=== PATIENT | female | born 1935 | race Caucasian/White ===

== ENCOUNTER → 2016-08-24 | Outpatient (CLI) | payer OTHER ==
[~2016-08-24] MED LIST: ASPIRIN325 PO; BACTRIM DS TAB1 EACH PO; CELEBREX 200 M200 MG PO; CENTRUM SILVER1 EAC1 PO; CLARITIN10 MG PO; COLACE 100 MG100 MG PO; FOSAMAX 70 MG T70 M1 PO; MECLIZINE 25 MG25 M1 PO; NASONEX17 GM NASAL; NEXIUM40 MG PO; NORVASC 5 MG TAB5 MG PO; OS-CAL 500+D C1 EACH PO; PEPCID AC20 M1 PO; SYNTHROID100 MCG PO; VISINE ALLERGY30 ML; VITAMIN D 5050000 I1 PO; VITAMIN E400 UNIT
== END ==
LOC: RAD 12:19
DX: R06.00 Dyspnea, unspecified (principal); R06.02 Shortness of breath